=== PATIENT | female | born 1955 | race Caucasian/White ===

== ENCOUNTER → 2024-03-27 06:11 | Day surgery (SDC) | payer MEDICARE, BC, SELFPAY ==
[2024-03-27] VITALS (11 sets, daily range): BP systolic 109–155; BP diastolic 56–75; BMI 23.0
[2024-03-27] MEDS: TYLENOL 1000 MG PO (09:16)
[2024-03-27] MEDS: DILAUDID 0.25 MG IV (12:10)
== END ==
LOC: SDS 06:11
PROVIDERS: ATTENDING PHYSICIAN Orthopaedic Surgery
DX: T84.84XA Pain due to internal orthopedic prosthetic devices, implants and grafts, initial encounter (principal); Y83.1 Surgical operation with implant of artificial internal device as the cause of abnormal reaction of the patient, or of later complication, without mention of misadventure at the time of the procedure; Z87.81 Personal history of (healed) traumatic fracture
CPT/HCPCS: 20680; 73100; 76000